=== PATIENT | male | born 1985 | race Caucasian/White ===

== ENCOUNTER 2019-12-22 16:43 | Emergency (ER) | payer BC, SELFPAY ==
[2019-12-22 16:46] VITALS: BP 155/100; PULSE 124; RESP 22; TEMP 37.3; O2SAT 96
--- NOTE | 2019-12-22 17:05 | ED.ALLEREA ---
HPI - Allergic Reaction General Chief complaint: Allergic Reaction Stated complaint: allergic reaction Time Seen by Provider: 12/22/19 16:53 Source: patient Mode of arrival: ambulatory Limitations: no limitations History of Present Illness HPI narrative: This is a 34 year old male that presents to the ER for allergic reaction x 2 days. Reports he recently finished an antibiotic for a sinus infection 2 days ago. Reports he then started to have an itchy rash that spread from his hands to his arms then his face and neck. Reports he has been taking Benadryl with little relief. Denies shortness of breath, or difficulty swallowing. Related Data Allergies Allergy/AdvReac Type Severity Reaction Status Date / Time aspirin Allergy Unknown Itching Verified 12/22/19 17:33 amoxicillin Allergy Hives Verified 12/22/19 17:33 Review of Systems Review of Systems: Narrative: CONSTITUTIONAL: Denies fever RESPIRATORY: Denies dyspnea. GASTROINTESTINAL: Denies diarrhea. SKIN: Reports rash and itching. All systems reviewed & are unremarkable except as noted in HPI and below PMFSH Past Medical History Medical History (Updated 12/22/19 @ 18:57 by Chiquis Saldana PA-C) History of diabetes mellitus History of hyperlipidemia History of hypertension Family History Family History (Updated 11/12/17 @ 09:06 by DOCTOR UNKNOWN) Other Family history of arthritis Hypertension Social History Social History Smoking status: Never smoker Alcohol intake: current Gender identity (if verbalized by the patient): Male Exam Narrative: Exam Narrative: GENERAL: Well-appearing, well-nourished, and in no acute distress. HEAD: Normocephalic, atraumatic. EYES: EOMI. ENT: Nares clear, no rhinorrhea or epistaxis. Mucous membranes moist. Oropharynx without tonsillar hypertrophy exudate or other lesions. Bilateral TMs pearly benites non-bulging NECK: Supple. No adenopathy or masses. CHEST: Clear to auscultation. No respiratory distress. No wheezes rales or rhonchi HEART: Regular rate and rhythm. No murmur heard. Normal peripheral pulses. EXTREMITIES: Normal range of motion. No edema. SKIN: Warm, dry. Red, papular rash present on the arms, neck, face, chest and back NEURO: No focal deficits. Alert and oriented x3. PSYCH: Normal mood and affect Course Vital Signs Vital signs: Vital Signs Temperature 99.2 F 12/22/19 16:46 Pulse Rate 124 H 12/22/19 16:46 Respiratory Rate 22 H 12/22/19 16:46 Blood Pressure 155/100 H 12/22/19 16:46 Pulse Oximetry 96 12/22/19 16:46 Temperature 99.2 F 12/22/19 16:46 Pulse Rate 115 H 12/22/19 18:39 Respiratory Rate 16 12/22/19 18:39 Blood Pressure 142/90 H 12/22/19 18:39 Pulse Oximetry 98 12/22/19 18:39 MDM - Allergic Reaction MDM Narrative Medical decision making narrative: Patient presents the emergency department for diffuse, itchy rash x2 days. He is afebrile and nontoxic-appearing. Lungs are clear on exam. No facial or mouth swelling. Patient tachycardic upon arrival and also hypertensive. This improved after steroid and antihistamines. Patient reports improvement after medications. He will be started on a steroid taper and was instructed on antihistamines. He is to follow-up with his primary care doctor. He was given warnings to return to the ER Critical Care Time Critical Care Time Critical Care Time: No Discharge Plan Discharge Clinical Impression: Allergic reaction Qualifiers: Encounter type: initial encounter Qualified Code(s): T78.40XA - Allergy, unspecified, initial encounter Patient Disposition: Home, Self-Care Condition: Stable Instructions: Antibiotic Medication Allergy (ED) Additional Instructions: Return to the emergency department if you experience fever, difficulty breathing, trouble swallowing, or any other symptoms that are concerning to you Take a Pepcid and Claritin daily. Take steroid taper as prescribed. Atarax as needed for severe i
[2019-12-22] MEDS: LORATADINE 10 MG TABLET PO (17:35)
[2019-12-22] MEDS: methylPREDNISolone SOD SUCC 125 MG VIAL IV PUSH (17:35)
[2019-12-22] MEDS: FAMOTIDINE 20 MG/2 ML VIAL IV PUSH (17:35)
[2019-12-22 18:39] VITALS: BP 142/90; PULSE 115; RESP 16; O2SAT 98
[2019-12-22 19:09] VITALS: BP 147/99; PULSE 89; RESP 17; O2SAT 98
== END 2019-12-22 19:08 | disposition home or self-care (01) ==
PROVIDERS: Emergency Provider Emergency Medicine; PCP Nurse Practitioner Adult Health
DX: T78.40XA Allergy, unspecified, initial encounter (principal); E11.9 Type 2 diabetes mellitus without complications; E78.5 Hyperlipidemia, unspecified; I10 Essential (primary) hypertension
CPT/HCPCS: 96374; 96375; 99284; A9270; J2930

== ENCOUNTER 2019-12-31 03:54 | Emergency (ER) | payer BC, SELFPAY ==
[2019-12-31 03:58] VITALS: BP 142/111; PULSE 114; RESP 18; TEMP 36.4; O2SAT 97
[2019-12-31 04:31] VITALS: BP 128/98; PULSE 102; RESP 18; O2SAT 97
[2019-12-31] MEDS: FAMOTIDINE 20 MG/2 ML VIAL IV PUSH (04:33)
[2019-12-31] MEDS: methylPREDNISolone SOD SUCC 125 MG VIAL IV PUSH (04:36)
[2019-12-31] MEDS: EPINEPHrine HCL INJ 1 MG/ML AMPUL 0.3 MG IM (04:37)
--- NOTE | 2019-12-31 04:46 | ED.ALLEREA ---
HPI - Allergic Reaction General Chief complaint: Allergic Reaction Stated complaint: itching Time Seen by Provider: 12/31/19 04:10 Source: patient Mode of arrival: ambulatory Limitations: no limitations History of Present Illness HPI narrative: 34 yo male who presents for evaluation of an itchy rash. Patient states he first developed rash 12/22/19 after starting amoxicilling for a sinus infection. Patient developed a red rash and he was started on steroids. He reports he has also been evaluated by his PCP who prescribed steroid taper and hydroxyzine. He has also been taking pepcid, benadryl and claritin. He reports his rash will disappear and then return. He states just prior a couple hours ago he develop rash and pain ful swallowing with trouble breathing. He denies fever or chills. MD complaint: allergic reaction Onset (ago): day(s) Exposure: medication Symptoms: rash, itching and difficulty swallowing Previous Allergic Reaction History: prior ED visit(s) Related Data Allergies Allergy/AdvReac Type Severity Reaction Status Date / Time aspirin Allergy Unknown Itching Verified 12/22/19 17:33 amoxicillin Allergy Hives Verified 12/22/19 17:33 Review of Systems Review of Systems: All systems reviewed & are unremarkable except as noted in HPI and below Constitutional: Constitutional: Denies chills and Denies fever(s) Eyes: Eyes: Denies change in vision ENT: Reports dysphagia and Reports sore throat Cardiovascular: Cardiovascular: Denies chest pain and Denies slow heart rate Respiratory: Respiratory: Denies cough and Denies dyspnea Gastrointestinal: Gastrointestinal: Denies abdominal pain and Denies nausea Musculoskeletal: Musculoskeletal: Denies myalgias Integumentary/Breasts: Skin/Breast: Reports pruritus and Reports rash PMFSH Past Medical History Medical History History of diabetes mellitus History of hyperlipidemia History of hypertension Family History Family History Other Family history of arthritis Hypertension Social History Social History Smoking status: Never smoker Alcohol intake: current Gender identity (if verbalized by the patient): Male Exam Narrative: Exam Narrative: GENERAL: Well-appearing, well-nourished, and in no acute distress. HEAD: Normocephalic, atraumatic EYES: PERRLA and EOMI, conjunctiva clear without discharge EARS: TM's clear bilaterally without erythema or dullness NOSE: Nares clear, no rhinorrhea or epistaxis THROAT:Mucous membranes moist, Oropharynx normal without erythema, exudate, peritonsillar swelling or fluctuance NECK: Supple, without lymphadenopathy or mass RESPIRATORY: No respiratory distress, Airway patent, Respirations non-labored, Clear to auscultation without rales, rhonchi or wheeze HEART: Regular rate and rhythm. No murmur heard. Normal peripheral pulses. ABDOMEN: Soft, nontender, nondistended, normal active bowel sounds. No masses. No rebound or guarding, No organomegaly. EXTREMITIES: No edema, normal strength with full range of motion. NEURO: Alert and oriented x3. CN 2-12 grossly intact. No focal deficits. PSYCH: Normal mood and affect. Skin: Other: erythematous papular blanching rash to face, arms and torso Course Reevaluation(s) Reevaluation #1: PAtient has improvement in symptoms. He has no airway involvement. Date: 12/31/19 Time: 07:15 Vital Signs Vital signs: Vital Signs Temperature 97.5 F L 12/31/19 03:58 Pulse Rate 114 H 12/31/19 03:58 Respiratory Rate 18 12/31/19 03:58 Blood Pressure 142/111 H 12/31/19 03:58 Pulse Oximetry 97 12/31/19 03:58 Temperature 97.5 F L 12/31/19 03:58 Pulse Rate 102 H 12/31/19 07:26 Respiratory Rate 18 12/31/19 07:26 Blood Pressure 165/100 H 12/31/19 07:26 Pulse Oximetry 98 12/31/19 07:26 MDM - Allergic Reaction Lab Data Labs: Lab R
[2019-12-31 06:16] VITALS: BP 156/102; PULSE 108; RESP 18; O2SAT 96
[2019-12-31 06:58] LABS: Monoscreen Negative (Negative); Negative Monotest Control Negative (Negative); Positive Monotest Control Positive (Positive)
[2019-12-31 07:26] VITALS: BP 165/100; PULSE 102; RESP 18; O2SAT 98
== END 2019-12-31 07:50 | disposition home or self-care (01) ==
PROVIDERS: Emergency Provider General Practice; PCP Nurse Practitioner Adult Health
DX: L50.0 Allergic urticaria (principal); E11.9 Type 2 diabetes mellitus without complications; I10 Essential (primary) hypertension; E78.5 Hyperlipidemia, unspecified
CPT/HCPCS: 36415; 86308; 87081; 87880; 96372; 96374; 96375; 96376; 99284; J0171; J1200; J2930

== ENCOUNTER 2020-08-06 11:50 | Outpatient (NON) | payer BC, SELFPAY ==
[2020-08-06 23:36] LABS: SARS-CoV-2 RNA PCR Negative
== END 2020-08-06 11:51 ==
PROVIDERS: PCP Nurse Practitioner Adult Health; Visit Provider Family Medicine
DX: Z20.828 Contact with and (suspected) exposure to other viral communicable diseases (principal); R51.9 Headache, unspecified
CPT/HCPCS: 87635; C9803; U0003

== ENCOUNTER 2021-01-05 13:00 | Emergency (ER) | payer BC, SELFPAY ==
--- NOTE | ~2021-01-05 | XR_ITS ---
EXAMINATION: XR toe 1st RT min 2V INDICATION: Right first toe pain TECHNIQUE: Four views of the right first toe are obtained. COMPARISON: 10/01/2015 FINDINGS: Subtle oblique lucency is seen in the medial base of the first proximal phalanx. There is s oft tissue swelling of the first toe. Chronic deformity of the foot is consistent with history of clu bfoot. IMPRESSION: 1. Subtle lucency in the medial base of the first proximal phalanx which could reflect nondisplaced f racture. Reviewed, dictated and finalized at location A. IMPRESSION: 1. Subtle lucency in the medial base of the first proximal phalanx which could reflect nondisplaced fracture.
[2021-01-05 13:01] VITALS: BP 150/101; PULSE 100; RESP 18; TEMP 36.3; O2SAT 100
--- NOTE | 2021-01-05 13:29 | ED.LOWEXIN ---
HPI - Extremity Injury (Lower) General Chief Complaint: Extremity Injury, Lower Stated Complaint: broken toe Time Seen by Provider: 01/05/21 13:10 Source: patient Mode of arrival: ambulatory Limitations: no limitations History of Present Illness HPI Narrative: This is a 35 year old male that presents to the ER for right great toe injury sustained yesterday. Reports he was trying to kick a soccer ball and noted pain after this. Reports swelling and bruising to the area. Denies decreased range of motion or numbness. Related Data Allergies Allergy/AdvReac Type Severity Reaction Status Date / Time aspirin Allergy Unknown Itching Verified 01/05/21 13:11 amoxicillin Allergy Hives Verified 01/05/21 13:03 Review of Systems Review of Systems: Narrative: CONSTITUTIONAL: Denies fever MUSCULOSKELETAL: Reports joint pain, and myalgia. NEUROLOGIC: Denies numbness, or weakness. All systems reviewed & are unremarkable except as noted in HPI and below PMFSH Past Medical History Medical History (Updated 01/05/21 @ 13:42 by Chiquis Saldana PA-C) History of diabetes mellitus History of hyperlipidemia History of hypertension Family History Family History Other Family history of arthritis Hypertension Social History Social History Smoking status: Never smoker Alcohol intake: current Gender identity (if verbalized by the patient): Male Exam Narrative: Exam Narrative: GENERAL: Well-appearing, well-nourished, and in no acute distress. HEAD: Normocephalic, atraumatic. EYES: EOMI. EXTREMITIES: Normal range of motion, no obvious deformity. Mild edema and bruising to the right great toe. Normal sensation. Normal peripheral pulses SKIN: Warm, dry, no rash. NEURO: No focal deficits. Alert and oriented x3. PSYCH: Normal mood and affect Course Vital Signs Vital signs: Vital Signs Temperature 97.3 F L 01/05/21 13:01 Pulse Rate 100 01/05/21 13:01 Respiratory Rate 18 01/05/21 13:01 Blood Pressure 150/101 H 01/05/21 13:01 Pulse Oximetry 100 01/05/21 13:01 Temperature 97.3 F L 01/05/21 13:01 Pulse Rate 100 01/05/21 13:01 Respiratory Rate 18 01/05/21 13:01 Blood Pressure 150/101 H 01/05/21 13:01 Pulse Oximetry 100 01/05/21 13:01 MDM - Extremity Injury (Lower) Imaging Data Radiologist's impression: ITS Impressions Toe X-Ray 01/05/21 13:23 IMPRESSION: 1. Subtle lucency in the medial base of the first proximal phalanx which could reflect nondisplaced fracture. Critical Care Time Critical Care Time Critical Care Time: No Discharge Plan Discharge Clinical Impression: Closed nondisplaced fracture of right great toe Qualifiers: Encounter type: initial encounter Phalanx: proximal Qualified Code(s): S92.414A - Nondisplaced fracture of proximal phalanx of right great toe, initial encounter for closed fracture Patient Disposition: Home, Self-Care Condition: Stable Instructions: Toe Fracture (ED) Additional Instructions: Return to the emergency department if you experience fever, redness and swelling, numbness, or any other symptoms that are concerning to you Blade tape the toe and wear postop shoe. Ice and elevate extremity. Pain medication as needed and directed. Follow up with your doctor for further care. Prescriptions: New hydrocodone-acetaminophen 5-325 mg tablet 1 tablet PO Q8H PRN (Reason: pain) Qty: 14 RF: 0 Follow-up/Referrals: Owen,JOSEPH Koenig [Primary Care Provider] - 3 Days Stand Alone Forms: Work/School Release IP
[2021-01-05] MEDS: HYDROcodone/acetaminophen (*CRX) 5-325 MG TABLET 1 TAB PO (13:42)
== END 2021-01-05 13:53 | disposition home or self-care (01) ==
PROVIDERS: Emergency Provider Emergency Medicine; PCP Nurse Practitioner Adult Health
DX: S92.414A Nondisplaced fracture of proximal phalanx of right great toe, initial encounter for closed fracture (principal); E11.9 Type 2 diabetes mellitus without complications; E78.5 Hyperlipidemia, unspecified; I10 Essential (primary) hypertension; W21.02XA Struck by soccer ball, initial encounter; Y93.66 Activity, soccer
CPT/HCPCS: 73660; 99284; A9270

== ENCOUNTER 2021-02-13 03:47 | Emergency (ER) | payer BC, SELFPAY ==
--- NOTE | ~2021-02-13 | CT_ITS ---
EXAMINATION: CT abdomen pelvis wo con EXAM DATE: 02/13/2021 04:19 INDICATION: Left flank pain. TECHNIQUE: Spiral CT of the abdomen and pelvis was performed without contrast. Axial, coronal and sag ittal images were reviewed. The dose-length product (DLP) for this examination was 1532.89 mGy-cm. The exposure was tailored according to patient size (auto mA exposure control), and iterative reconst ruction (ASIR) was used as additional dose reduction technique. Comparison is made to prior examinati on from 12/07/2012. FINDINGS: There is a 4 mm stone at the left ureteropelvic junction, mild hydronephrosis. There are at least 7 nonobstructing left renal calyceal stones measuring up to 5 mm and at least 9 on the right m easuring up to 6 mm. No right-sided hydronephrosis. The prostate is unremarkable. The bladder is un remarkable. Mild hepatic steatosis. Spleen, pancreas, adrenal glands are unremarkable. Gallbladder is unremarkable. No biliary obstruction. There is no retroperitoneal or pelvic lymphadenopathy. The appendix is normal. There is mild scattered colonic diverticulosis. There is no adjacent inflamm atory change to suggest diverticulitis. The stomach and small bowel are unremarkable. There is expec chacha amount of colonic stool. No free intraperitoneal gas. The heart is normal in size. There are no pericardial or pleural effusions. Couple of calcified granulomas along the right minor fissure. There is 6 mm sclerotic focus right pubis symphysis probably bone island. Lowest lumbar segment is t ransitional, could be considered L6 with rudimentary disc below. IMPRESSION: 1. Left UPJ 4 mm stone, mild hydronephrosis. 2. Bilateral nephrolithiasis. 3. Hepatic steatosis. 4. Mild colonic diverticulosis. Reviewed, dictated and finalized at location B.
[2021-02-13 04:02] VITALS: BP 213/123; PULSE 83; RESP 14; TEMP 36.6; O2SAT 99
[2021-02-13] MEDS: MORPHINE SULFATE (*CRX) 4 MG/ML INJ IV PUSH (04:13)
[2021-02-13] MEDS: ONDANSETRON INJ 4 MG/2 ML VIAL IV PUSH (04:13)
[2021-02-13] MEDS: KETOROLAC 30 MG/ML VIAL (*BKC) IV PUSH (04:13)
[2021-02-13] MEDS: SODIUM CHLORIDE 0.9% IV 1,000 ML 999 ML IV CONT (04:13)
[2021-02-13 04:15] LABS: Basophils Absolute Auto 0.1 K/mm3 (0.0-0.1); Basophils Percent Auto 0.6 % (0.2-1.2); Eosinophils Absolute Auto 0.2 K/mm3 (0-0.3); Eosinophils Percent Auto 2.4 % (0-4.4); Hematocrit 43.9 % (42.0-52.0); Hemoglobin 14.6 g/dL (14.0-18.0); Immature Granulocyte Absolute 0.04 K/mm3 (0.00-0.031); Immature Granulocyte Percent A 0.4 % (0-0.5); Lymphocytes Percent Auto 29.6 % (18.3-44.2); Mean Corpuscular HGB Conc 33.3 g/dl (32-36); Mean Corpuscular Hemoglobin 30.2 pg (26-34); Mean Corpuscular Volume 90.7 fl (80-100); Mean Platelet Volume 10.6 fl (7.4-10.4); Monocytes Percent Auto 10.1 % (2.6-8.5); Neutrophils Absolute Auto 5.8 K/mm3 (1.3-6.7); Neutrophils Percent Auto 56.9 % (45.5-73.1); Platelet Count Result 289 k/mm3 (150-375); Red Blood Count 4.84 M/mm3 (4.6-6.20); Red Cell Distribution Width 12.4 % (11.5-14.5); White Blood Count 10.1 K/mm3 (4.5-10.0)
[2021-02-13 04:37] LABS: Alanine Aminotransferase 31 U/L (4-50); Albumin Level 4.3 g/dL (3.5-5.1); Alkaline Phosphatase 86 U/L (38-126); Anion Gap 8 mmol/L (8-16); Aspartate Amino Transferase 33 U/L (17-59); Bilirubin,Total 0.2 mg/dL (0.2-1.3); Blood Urea Nitrogen 15 mg/dL (9-20); Calcium 9.2 mg/dL (8.4-10.2); Carbon Dioxide 30 mmol/L (22-30); Chloride 102 mmol/L (98-107); Estimated CRCL calculation 106 ml/min; Estimated Glomerular Filt Rate > 60; Glucose 150 mg/dL (75-110); Lipase 80 U/L (23-300); Potassium 3.9 mmol/L (3.4-5.0); Sodium 140 mmol/L (137-145)
[2021-02-13] MEDS: HYDROmorphone HCL INJ (*CRX) 1 MG/ML SYR IV PUSH (05:43)
--- NOTE | 2021-02-13 06:00 | ED.GENADULT ---
HPI - General Adult General Chief complaint: Abdominal Pain Stated complaint: Kidney Stone Time Seen by Provider: 02/13/21 03:54 History of Present Illness HPI narrative: Patient is a 35-year-old gentleman who presents the emergency department chief complaint of left flank pain patient reports he has a prior history of kidney stones reports that tonight he had sudden onset of sharp pain in the left flank and left lower quadrant the patient reports the pain is not improved by anything reports he had some nausea and vomiting. The patient reports this feels similar to when he had kidney stones before in the past. Patient reports he seen a urologist but reports that he is not required stenting or lithotripsy. Related Data Allergies Allergy/AdvReac Type Severity Reaction Status Date / Time aspirin Allergy Unknown Itching Verified 01/05/21 13:11 amoxicillin Allergy Hives Verified 01/05/21 13:03 Review of Systems Review of Systems: Narrative: A 10 system review of systems was completed on the patient and is negative except for what is stated in the HPI. Nursing and ancillary documentation was reviewed. [facility] Past Medical History Medical History (Updated 02/13/21 @ 06:06 by Juan Luis Raymundo MD) History of diabetes mellitus History of hyperlipidemia History of hypertension Family History Family History Other Family history of arthritis Hypertension Social History Social History Smoking status: Never smoker Alcohol intake: current Gender identity (if verbalized by the patient): Male Exam Narrative: Exam Narrative: GENERAL: Well-appearing, well-nourished, and in no acute distress. HEAD: Normocephalic, atraumatic. EYES: PERRLA and EOMI. ENT: Nares clear, no rhinorrhea or epistaxis. Mucous membranes moist. NECK: Supple. CHEST: Clear to auscultation. No respiratory distress. HEART: Regular rate and rhythm. No murmur heard. Normal peripheral pulses. ABDOMEN: Soft, nontender, nondistended, normal active bowel sounds. EXTREMITIES: Normal range of motion. No edema. SKIN: Warm, dry, no rash. NEURO: No focal deficits. Alert and oriented x3. PSYCH: Normal mood and affect. Course Course Emergency Course: CT scan shows evidence of 4 mm stone at the UPJ Vital Signs Vital signs: Vital Signs Temperature 36.6 C 02/13/21 04:02 Pulse Rate 83 02/13/21 04:02 Respiratory Rate 14 02/13/21 04:02 Blood Pressure 213/123 H 02/13/21 04:02 Pulse Oximetry 99 02/13/21 04:02 Temperature 36.6 C 02/13/21 04:02 Pulse Rate 83 02/13/21 04:02 Respiratory Rate 14 02/13/21 04:02 Blood Pressure 213/123 H 02/13/21 04:02 Pulse Oximetry 99 02/13/21 04:02 Medical Decision Making Vital Signs Vital Signs: Vital Signs Temperature 36.6 C 02/13/21 04:02 Pulse Rate 83 02/13/21 04:02 Respiratory Rate 14 02/13/21 04:02 Blood Pressure 213/123 H 02/13/21 04:02 Pulse Oximetry 99 02/13/21 04:02 Temperature 36.6 C 02/13/21 04:02 Pulse Rate 83 02/13/21 04:02 Respiratory Rate 14 02/13/21 04:02 Blood Pressure 213/123 H 02/13/21 04:02 Pulse Oximetry 99 02/13/21 04:02 Lab Data Result diagrams: 02/13/21 04:08 02/13/21 04:08 Labs: Lab Results 02/13/21 02/13/21 02/13/21 Range/Units 04:08 04:08 06:27 WBC 10.1 H (4.5-10.0) K/mm3 RBC 4.84 (4.6-6.20) M/mm3 Hgb 14.6 (14.0-18.0) g/dL Hct 43.9 (42.0-52.0) % MCV 90.7 (80-100) fl MCH 30.2 (26-34) pg MCHC 33.3 (32-36) g/dl RDW 12.4 (11.5-14.5) % Plt Count 289 (150-375) k/mm3 MPV 10.6 H (7.4-10.4) fl Immature Gran % (Auto) 0.4 (0-0.5) % Neut % (Auto) 56.9 (45.5-73.1) % Lymph % (Auto) 29.6 (18.3-44.2) % [place] % (Auto) 10.1 H (2.6-8.5) % Eos % (Auto) 2.4 (0-4.4) % Baso % (Auto) 0.6 (0.2-1.2) %
[2021-02-13 06:42] LABS: Add Urine Microscopic? YES; Appearance Urine Cloudy (Clear); Bilirubin Urine Negative (Negative); Blood Urine 3+ (Negative); Color Urine Yellow (Yellow); Glucose Urine UA Negative (Negative); Ketones Urine Negative (Negative); Leukocyte Esterase Ur Negative LEU/UL (Negative); Mucus Urine Few /lpf; Nitrate Urine Negative (Negative); Protein Urine 2+ mg/dL (Negative); RBC Urine >75 /hpf (0-2); Specific Grav Ur 1.026 (1.001-1.035); Squamous Epithelial Cell Urine Rare /hpf (Few); Urobilinogen Urine Negative mg/dL (<2.0)
[2021-02-13 07:11] VITALS: BP 122/86; PULSE 88; RESP 16; TEMP 36.8; O2SAT 98
== END 2021-02-13 07:14 | disposition home or self-care (01) ==
PROVIDERS: Emergency Provider Emergency Medicine; PCP Nurse Practitioner Adult Health
DX: N13.2 Hydronephrosis with renal and ureteral calculous obstruction (principal); E11.9 Type 2 diabetes mellitus without complications; E78.5 Hyperlipidemia, unspecified; I10 Essential (primary) hypertension; K76.0 Fatty (change of) liver, not elsewhere classified; K57.90 Diverticulosis of intestine, part unspecified, without perforation or abscess without bleeding
CPT/HCPCS: 36415; 74176; 80053; 81001; 83690; 85025; 96361; 96374; 96375; 99284; J1170; J1885; J2270; J2405; J7030

== ENCOUNTER 2021-02-25 11:18 | Outpatient (CLI) | payer BC, SELFPAY ==
--- NOTE | ~2021-02-25 | XR_ITS ---
EXAMINATION: XR abdomen/kub 1V EXAM DATE: 02/25/2021 11:35 INDICATION: Kidney stone, left side flank pain. TECHNIQUE: Frontal projection of the upper abdomen, frontal projection lower abdomen/pelvis for inter pretation. Correlation is made to CT abdomen pelvis 02/13/2021. FINDINGS: There is approximately 4 mm calcification projecting between the L3 and L4 left transverse processes, likely the proximal ureteral stone seen on CT scan. Probably identification of several sim ilar sized kidney stones bilaterally. Mild bilateral hip primary osteoarthritis. Nonobstructive bowel gas pattern. IMPRESSION: 1. Probable identification left proximal ureteral stone. 2. Bilateral nephrolithiasis. Reviewed, dictated and finalized at location A.
== END 2021-02-25 11:19 | disposition home or self-care (01) ==
LOC: ANHIMG 11:24
PROVIDERS: PCP Nurse Practitioner Adult Health; Visit Provider Urology
DX: N20.0 Calculus of kidney (principal)
CPT/HCPCS: 74018

== ENCOUNTER 2021-03-28 13:25 | Outpatient (CLI) | payer BC, SELFPAY ==
--- NOTE | ~2021-03-28 | XR_ITS ---
XR abdomen/kub 1V DATE: 03/28/2021 13:38 INDICATION: Left kidney stone TECHNIQUE: AP projection, 2 views COMPARISON: 02/25/2021 KUB FINDINGS: Scattered bilateral renal calcifications. No ureteral calcified calculus is identified on the current examination. Noncontrast CT abdomen pelvis examination would be more sensitive and accurate for detection of urina ry tract calculi. 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 There is a prominent of fecal material in the ascending and transverse colon. No bowel obstruction. IMPRESSION: Bilateral nephrolithiasis Reviewed, dictated and finalized at [facility]. Reviewed, dictated and finalized at [facility]. IMPRESSION: Bilateral nephrolithiasis
== END 2021-03-28 13:26 | disposition home or self-care (01) ==
LOC: ANHIMG 13:28
PROVIDERS: PCP Nurse Practitioner Adult Health; Visit Provider Urology
DX: N20.0 Calculus of kidney (principal)
CPT/HCPCS: 74018

== ENCOUNTER 2021-04-24 07:06 | Outpatient (CLI) | payer BC, SELFPAY ==
[2021-04-24 07:43] LABS: Anion Gap 10 mmol/L (8-16); Blood Urea Nitrogen 15 mg/dL (9-20); Calcium 9.3 mg/dL (8.4-10.2); Carbon Dioxide 29 mmol/L (22-30); Chloride 101 mmol/L (98-107); Estimated Glomerular Filt Rate > 60; Glucose 211 mg/dL (75-110); Potassium 3.6 mmol/L (3.4-5.0); Sodium 140 mmol/L (137-145)
[2021-04-24 08:49] LABS: INR 0.9; Prothrombin Time 12.2 Seconds (11.1-14.7)
[2021-04-24 08:52] LABS: Partial Thromboplastin Time 23.8 SECONDS (22.3-36.8)
[2021-04-27 00:31] LABS: Carbamazepine Tegretol 5.1 mcg/mL (4.0-12.0)
== END 2021-04-24 07:07 | disposition home or self-care (01) ==
LOC: ANHLAB 07:06
PROVIDERS: PCP Nurse Practitioner Adult Health; Referring Provider Anesthesiology; Visit Provider Urology
DX: N20.0 Calculus of kidney (principal); Z86.39 Personal history of other endocrine, nutritional and metabolic disease; F31.9 Bipolar disorder, unspecified
CPT/HCPCS: 36415; 80048; 80156; 85610; 85730; 87086

== ENCOUNTER 2021-04-25 01:19 | Day surgery (SDC) | payer BC, SELFPAY ==
[2021-04-23 16:30] VITALS: BMI 37.6
--- NOTE | ~2021-04-25 | XR_ITS ---
EXAMINATION: XR abdomen/kub 1V DATE: 04/25/2021 06:38 INDICATION: Kidney stone. TECHNIQUE: A supine view of the abdomen on 2 radiographs was obtained. COMPARISON: Abdomen radiograph 03/28/2021, CT abdomen and pelvis 02/13/2021 FINDINGS: There are no dilated loops of bowel. There are phleboliths in right pelvis. There are least 8 stones in right kidney measuring up to 4 mm. There are at least 4 stones in left kidney measuring up to 3 mm. IMPRESSION: 1. Bilateral kidney stones. Reviewed, dictated and finalized at location [facility]. IMPRESSION: 1. Bilateral kidney stones.
--- NOTE | 2021-04-25 06:58 | ECG_ITS ---
Measurements Intervals [place] Rate: 81 P: 42 KS: 166 QRS: 37 QRSD: 107 T: -6 QT: 376 QTc: 437 Interpretive Statements SINUS RHYTHM BASELINE WANDER- II, III, V3, V6 NORMAL ECG Electronically Signed On 04-25-2021 7:54:15 CDT by Kaveh Lorenzana D.O.
[2021-04-25 07:08] VITALS: BP 147/94; PULSE 84; RESP 18; TEMP 36.4; O2SAT 97; BMI 38.1
[2021-04-25] MEDS: LACTATED RINGERS 1,000 ML 30 ML IV CONT (07:20)
[2021-04-25 07:32] LABS: Glucose Point of Care 150 mg/dl (65-105)
--- NOTE | 2021-04-25 07:38 | WPDANESEPPF ---
Anes - Initial Pre Proc Eval Procedure: Operation Date: 04/25/21 08:30 Proposed Procedures p Right Renal Extracorporeal Shock Wave Lithotripsy - Oziel Pitts MD Date/Time: 04/25/21 07:38 Surgeon: Oziel Pitts MD Pre Op Diagnosis: right renal stone Patient Data Age: 35 Gender: M Height: 1.7 m Weight: 110.4 kg Last Vital Signs Temp 36.4 C L 04/25/21 07:08 Pulse 84 04/25/21 07:08 Resp 18 04/25/21 07:08 BP 147/94 H 04/25/21 07:08 Pulse Ox 97 04/25/21 07:08 Allergies Allergy/AdvReac Type Severity Reaction Status Date / Time amoxicillin Allergy Severe Hives Verified 04/25/21 06:59 aspirin Allergy Severe Hives Verified 04/25/21 06:59 Home Medications Medication Instructions Recorded Confirmed Type amlodipine 5 mg PO DAILY 04/23/21 04/25/21 History atorvastatin 10 mg PO DAILY 04/23/21 04/23/21 History carbamazepine 200 mg PO DAILY 04/23/21 04/25/21 History epinephrine 0.3 mg SUBCUT PRN PRN 04/23/21 04/23/21 History losartan-hydrochlorothiazide 1 tablet PO DAILY 04/23/21 04/23/21 History metformin 1,000 mg PO BID 04/23/21 04/23/21 History omeprazole 40 mg PO DAILY 04/23/21 04/23/21 History Laboratory Tests 04/25/21 07:29 POC Capillary Glucose 150 mg/dl H mg/dl (65-105) Patient hx anesthesia problems: none Family hx anesthesia problems: none [facility] Past Medical History Medical History (Updated 02/14/21 @ 00:01 by [facility]) History of diabetes mellitus History of hyperlipidemia History of hypertension Surgical History Surgical History (Updated 04/25/21 @ 07:41 by Iglesia Reynolds MD) Status post club foot correction at Family History Family History Other Family history of arthritis Hypertension Social History Social History Smoking status: Never smoker Alcohol intake: current Alcohol use details: 2 DRINKS PER MONTH Living arrangements: with family Gender identity (if verbalized by the patient): Male Spiritual care concerns: No Anes - Eval Final PreProcedure Day of Procedure 04/25/21 07:38 Patient weight: obese Heart: regular rate and rhythm Lungs: clear to auscultation Airway: Mallampati scale class II Neurological: alert and oriented Last oral intake: >/= 8 hours ASA classification: III Emergent: no Anesthetic plan: proceed Anesthesia type and monitoring: general LMA and standard monitoring Informed Consent: The patient's anesthetic plan and its attendant risks and benefits were discussed with the patient/family/POA. Questions were solicited and answers provided to the satisfaction of the patient/family/POA.
--- NOTE | 2021-04-25 08:21 | SUR.PREOP ---
Notified patient there will be a delay for procedure. Patient verbalizes understanding.
--- NOTE | 2021-04-25 09:40 | SUR.PREOP ---
0940- Patient's procedure cancelled due to ESWL machine being broken. Procedure to be performed at outside facility. Patient discharged home at this time.
== END 2021-04-25 09:40 | disposition home or self-care (01) ==
PROVIDERS: PCP Nurse Practitioner Adult Health; Visit Provider Urology
PROC: (CPT 50590; principal; 2021-04-25 08:30)
DX: N20.0 Calculus of kidney (principal); Z53.8 Procedure and treatment not carried out for other reasons; I10 Essential (primary) hypertension; E78.5 Hyperlipidemia, unspecified; E11.9 Type 2 diabetes mellitus without complications; Z79.84 Long term (current) use of oral hypoglycemic drugs
CPT/HCPCS: 74018; 82948; 93005; 99213; G0463; J7120

== ENCOUNTER 2021-05-09 13:54 | Outpatient (CLI) | payer BC, SELFPAY ==
--- NOTE | ~2021-05-09 | XR_ITS ---
EXAMINATION: XR abdomen/kub 1V INDICATION: History of bilateral nephrolithiasis, recent lithotripsy TECHNIQUE: Supine views of the abdomen were obtained on 2 radiographs. COMPARISON: 04/25/2021 FINDINGS: Only a single 3 mm stone remains identifiable in the left kidney. There is a questionable 2 mm stone of the right kidney lower pole. No stones or stone fragments are identified along the expec chacha courses of the ureters or within the bladder. There are phleboliths of the right pelvis. IMPRESSION: 1. Bilateral nephrolithiasis with decrease in number of identifiable left kidney stones, consistent w ith history of interval lithotripsy. Reviewed, dictated and finalized at location [facility]. IMPRESSION: 1. Bilateral nephrolithiasis with decrease in number of identifiable left kidne y stones, consistent with history of interval lithotripsy.
== END 2021-05-09 13:55 | disposition home or self-care (01) ==
LOC: ANHIMG 13:57
PROVIDERS: PCP Nurse Practitioner Adult Health; Visit Provider Urology
DX: N20.0 Calculus of kidney (principal)
CPT/HCPCS: 74018

== ENCOUNTER 2023-11-29 01:01 | Day surgery (SDC) | payer BC, SELFPAY ==
[2023-11-25 10:10] VITALS: BMI 37.5
--- NOTE | 2023-11-26 11:19 | SUR.PREOP ---
Patient called regarding upcoming procedure. Reviewed preop instructions, appointment times, and procedure prep.
--- NOTE | 2023-11-26 13:57 | PM.HPGS ---
History of Present Illness History of Present Illness Consent: Risks, benefits, and alternatives have been discussed and questions answered. Patient agrees to proceed with procedure. Chief complaint: hx of other diseases of the digestive system Narrative: Farhad Anderson is a 38 year old male with chronic acid reflux and history of Possible esophageal ulcer. he has been on omeprazole for over 20 years. Does well for him but occasionally he has breakthrough symptoms will take a 2nd dose. His symptoms when present are heartburn and, more frequently regurgitating particularly at night. This will happen about every couple of months. He denies dysphagia. His appetite is good he has had no weight loss. Review of Systems Review of Systems: All systems reviewed & are unremarkable except as noted in HPI and below PMFSH Past Medical History Medical History Allergies Chronic GERD Diabetes History of diabetes mellitus History of hyperlipidemia History of hypertension HTN (hypertension) Surgical History Surgical History Status post club foot correction at Family History Family History Father Diabetes mellitus Hypertension Depression Heart disease Grandparent Diabetes mellitus Hypertension Heart disease Grandparent Hypertension Heart disease Other Family history of arthritis Social History Social History Smoking status: Never smoker Alcohol intake: current Drinks per week: 1 Substance use: never Substance use type: does not use Lack of Transportation: No Lack of Food: Never True Current Housing: I Have Housing Concerned About Future Housing: No Difficulty Paying Gas/Electric Bills: No Difficulty Paying for Meds: No Currently Unemployed: No Education: Decline to Answer Difficulty w/ Childcare or Family Care: No Living arrangements: with family Occupation/Education: occupation Additional occupation/education comments: [employer] Gender identity (if verbalized by the patient): Male Spiritual care concerns: No Agree to blood products: Yes Meds Home Medications and Allergies Home Medications Medication Instructions Recorded Confirmed Type amlodipine 5 mg tablet 5 mg PO DAILY 04/23/21 11/29/23 History atorvastatin 10 mg tablet 10 mg PO DAILY 04/23/21 11/29/23 History carbamazepine 200 mg tablet 200 mg PO DAILY 04/23/21 11/29/23 History epinephrine 0.3 mg/0.3 mL 0.3 mg subcut PRN PRN HIVES 04/23/21 11/29/23 History injection, auto-injector losartan 100 1 tablet PO DAILY 04/23/21 11/29/23 History mg-hydrochlorothiazide 12.5 mg tablet omeprazole 40 mg capsule,delayed 40 mg PO DAILY 04/23/21 11/29/23 History release tirzepatide 5 mg/0.5 mL 5 mg (0.5 mL) subcut WEEKLY #2 mL 11/02/23 11/29/23 Rx subcutaneous pen injector (Mounjaro) tirzepatide 7.5 mg/0.5 mL 7.5 mg (0.5 mL) subcut WEEKLY #2 mL 11/02/23 11/29/23 Rx subcutaneous pen injector (Mounjaro) metformin 750 mg tablet,extended 750 mg PO HS 11/25/23 11/29/23 History release 24 hr Allergies Allergy/AdvReac Type Severity Reaction Status Date / Time amoxicillin Allergy Severe Hives Verified 11/29/23 11:27 aspirin Allergy Intermediate Hives Verified 11/29/23 11:27 Exam Const: General: alert Nutritional Appearance: obese Orientation/consciousness: patient oriented x3 Resp: Auscultation: clear to auscultation bilaterally Cardio: Rhythm: regular rhythm GI: GI Palp: Yes Soft to palpation and No Tenderness to palpation present (GI) Neuro: General: patient oriented x3 Assessment and Plan Assessment and plan (1) History of esophageal ulcer: Code(s): Z87.19 - Personal history of other diseases of the digestive system Status: A
[2023-11-29 11:37] VITALS: BP 160/109; PULSE 90; RESP 16; TEMP 36.9; O2SAT 97
[2023-11-29] MEDS: LACTATED RINGERS 1,000 ML 150 ML IV CONT (11:48)
--- NOTE | 2023-11-29 11:52 | WPDANESEPPF ---
Anes - Initial Pre Proc Eval Procedure: Operation Date: 11/29/23 12:30 Proposed Procedures p Esophagogastroduodenoscopy - Alin David MD Date/Time: 11/29/23 11:52 Surgeon: Alin David MD Pre Op Diagnosis: hx of other diseases of the digestive system Patient Data Age: 38 Gender: M Height: 1.7 m Weight: 112.7 kg Last Vital Signs Temp 98.4 F 11/29/23 11:37 Pulse 90 11/29/23 11:37 Resp 16 11/29/23 11:37 BP 160/109 H 11/29/23 11:37 Pulse Ox 97 11/29/23 11:37 O2 Del Method Room Air 11/29/23 11:37 Allergies Allergy/AdvReac Type Severity Reaction Status Date / Time amoxicillin Allergy Severe Hives Verified 11/29/23 11:27 aspirin Allergy Intermediate Hives Verified 11/29/23 11:27 Home Medications Medication Instructions Recorded Confirmed Type amlodipine 5 mg tablet 5 mg PO DAILY 04/23/21 11/29/23 History atorvastatin 10 mg tablet 10 mg PO DAILY 04/23/21 11/29/23 History carbamazepine 200 mg tablet 200 mg PO DAILY 04/23/21 11/29/23 History epinephrine 0.3 mg/0.3 mL 0.3 mg subcut PRN PRN HIVES 04/23/21 11/29/23 History injection, auto-injector losartan 100 1 tablet PO DAILY 04/23/21 11/29/23 History mg-hydrochlorothiazide 12.5 mg tablet omeprazole 40 mg capsule,delayed 40 mg PO DAILY 04/23/21 11/29/23 History release tirzepatide 5 mg/0.5 mL 5 mg (0.5 mL) subcut WEEKLY #2 mL 11/02/23 11/29/23 Rx subcutaneous pen injector (Mounjaro) tirzepatide 7.5 mg/0.5 mL 7.5 mg (0.5 mL) subcut WEEKLY #2 mL 11/02/23 11/29/23 Rx subcutaneous pen injector (Mounjaro) metformin 750 mg tablet,extended 750 mg PO HS 11/25/23 11/29/23 History release 24 hr Patient hx anesthesia problems: none Family hx anesthesia problems: none Results Review: All pre-operative results and documents have been reviewed as part of the pre-operative evaluation. [facility] Past Medical History Medical History Allergies Chronic GERD Diabetes History of diabetes mellitus History of hyperlipidemia History of hypertension HTN (hypertension) Surgical History Surgical History Status post club foot correction at Family History Family History Father Diabetes mellitus Hypertension Depression Heart disease Grandparent Diabetes mellitus Hypertension Heart disease Grandparent Hypertension Heart disease Other Family history of arthritis Social History Social History Smoking status: Never smoker Alcohol intake: current Drinks per week: 1 Substance use: never Substance use type: does not use Lack of Transportation: No Lack of Food: Never True Current Housing: I Have Housing Concerned About Future Housing: No Difficulty Paying Gas/Electric Bills: No Difficulty Paying for Meds: No Currently Unemployed: No Education: Decline to Answer Difficulty w/ Childcare or Family Care: No Living arrangements: with family Occupation/Education: occupation Additional occupation/education comments: [employer] Gender identity (if verbalized by the patient): Male Spiritual care concerns: No Agree to blood products: Yes Anes - Eval Final PreProcedure Day of Procedure 11/29/23 11:52 Patient weight: obese Heart: regular rate and rhythm Lungs: clear to auscultation Airway: Mallampati scale class II Neurological: alert and oriented Last oral intake: >/= 8 hours ASA classification: III Emergent: no Anesthetic plan: proceed Anesthesia type and monitoring: general GIVS and standard monitoring Results Review: All pre-operative results and documents have been reviewed as part of the pre-operative evaluation. Informed Consent: The patient's anesthetic plan and its attendant risks and benefits were discussed with the patient
[2023-11-29 12:29] VITALS: BP 130/87; PULSE 89; RESP 15; O2SAT 94
[2023-11-29 12:39] VITALS: BP 127/87; PULSE 91; RESP 17; O2SAT 94
[2023-11-29 12:49] VITALS: BP 140/92; PULSE 84; RESP 17; O2SAT 95
[2023-11-30 06:20] LABS: Glucose Point of Care 113 mg/dl (65-105)
== END 2023-11-29 12:59 | disposition home or self-care (01) ==
PROVIDERS: PCP Nurse Practitioner Adult Health; Visit Provider Internal Medicine Gastroenterology
PROC: 0DJ08ZZ Inspection of Upper Intestinal Tract, Via Natural or Artificial Opening Endoscopic (ICD-10-PCS; CPT 43235; principal; 2023-11-29 12:30)
DX: K21.00 Gastro-esophageal reflux disease with esophagitis, without bleeding (principal); I10 Essential (primary) hypertension; E78.5 Hyperlipidemia, unspecified; E11.9 Type 2 diabetes mellitus without complications; E66.9 Obesity, unspecified; Z68.38 Body mass index [BMI] 38.0-38.9, adult; Z79.85 Long-term (current) use of injectable non-insulin antidiabetic drugs; Z79.84 Long term (current) use of oral hypoglycemic drugs; Z98.890 Other specified postprocedural states; Z87.19 Personal history of other diseases of the digestive system; Z82.49 Family history of ischemic heart disease and other diseases of the circulatory system
CPT/HCPCS: 43239; 82948; 88305; J2704; J7120

== ENCOUNTER 2024-06-09 08:17 | Outpatient (CLI) | payer BC, SELFPAY ==
[2024-06-09 09:14] LABS: Alanine Aminotransferase 24 U/L (6-50); Albumin Level 4.2 g/dL (3.5-5.1); Alkaline Phosphatase 99 U/L (38-126); Anion Gap 9 mmol/L (4-12); Aspartate Amino Transferase 28 U/L (17-59); Bilirubin,Total 0.4 mg/dL (0.2-1.3); Blood Urea Nitrogen 20 mg/dL (9-20); Calcium 8.6 mg/dL (8.4-10.2); Carbon Dioxide 29 mmol/L (22-30); Chloride 101 mmol/L (98-107); Cholesterol 129 mg/dL (0-200); Estimated Glomerular Filt Rate > 60; Glucose 120 mg/dL (65-110); HDL Direct 39 mg/dL; Potassium 3.8 mmol/L (3.4-5.0); Sodium 139 mmol/L (137-145); Triglycerides 118 mg/dL (<150)
[2024-06-09 09:25] LABS: LDL Cholesterol Direct 67 mg/dL
[2024-06-09 10:00] LABS: Microalbumin Urine Random 8.9 mg/L (0-16.7)
[2024-06-09 10:01] LABS: Creatinine Urine 189.8 mg/dL; MALB Creatinine Ratio 4.7 mg/g (0-30)
[2024-06-09 12:09] LABS: Hemoglobin A1C 6.4 % (<5.7)
== END 2024-06-09 08:18 | disposition home or self-care (01) ==
LOC: ANHLAB 08:22
PROVIDERS: PCP Nurse Practitioner Adult Health; Visit Provider Nurse Practitioner Adult Health
DX: E11.9 Type 2 diabetes mellitus without complications (principal); K21.9 Gastro-esophageal reflux disease without esophagitis
CPT/HCPCS: 36415; 80053; 80061; 82043; 82565; 82607; 83036

== ENCOUNTER 2024-07-19 09:30 | Emergency (ER) | payer BC, SELFPAY ==
[2024-07-19 09:33] VITALS: BP 130/79; PULSE 110; RESP 19; TEMP 37; O2SAT 96
[2024-07-19 10:02] LABS: Basophils Absolute Auto 0.1 K/mm3 (0.0-0.1); Basophils Percent Auto 0.4 % (0.2-1.2); Eosinophils Absolute Auto 0.1 K/mm3 (0-0.3); Eosinophils Percent Auto 0.7 % (0-4.4); Hematocrit 40.4 % (42.0-52.0); Hemoglobin 14.1 g/dL (14.0-18.0); Immature Granulocyte Absolute 0.16 K/mm3 (0.00-0.031); Immature Granulocyte Percent A 1.3 % (0-0.5); Lymphocytes Absolute Auto 1.55 K/mm3 (0.9-3.2); Mean Corpuscular HGB Conc 34.9 g/dl (32-36); Mean Corpuscular Hemoglobin 31.3 pg (26-34); Mean Corpuscular Volume 89.8 fl (80-100); Monocytes Percent Auto 8.6 % (2.6-8.5); Neutrophils Absolute Auto 9.1 K/mm3 (1.3-6.7); Platelet Count Result 343 k/mm3 (150-375); Red Cell Distribution Width 11.8 % (11.5-14.5); White Blood Count 11.9 K/mm3 (4.5-10.0)
[2024-07-19 10:12] LABS: Add Urine Microscopic? YES; Appearance Urine Clear (Clear); Bacteria Urine None Seen /hpf; Bilirubin Urine Negative (Negative); Blood Urine 1+ (Negative); Color Urine Yellow (Yellow); Glucose Urine UA Negative (Negative); Ketones Urine 1+ mg/dL (Negative); Leukocyte Esterase Ur Negative LEU/UL (Negative); Nitrate Urine Negative (Negative); Non Pathogenic Casts 0-2; Protein Urine Negative (Negative); Specific Grav Ur 1.017 (1.001-1.035); Squamous Epithelial Cell Urine None Seen /hpf (Few); Urobilinogen Urine 0.2 mg/dL (<2.0); WBC Urine 0-5 /hpf (0-3)
[2024-07-19 10:14] LABS: Alanine Aminotransferase 30 U/L (6-50); Albumin Level 3.9 g/dL (3.5-5.1); Alkaline Phosphatase 90 U/L (38-126); Anion Gap 10 mmol/L (4-12); Aspartate Amino Transferase 27 U/L (17-59); Bilirubin,Total 0.6 mg/dL (0.2-1.3); Blood Urea Nitrogen 11 mg/dL (9-20); Calcium 8.8 mg/dL (8.4-10.2); Carbon Dioxide 29 mmol/L (22-30); Chloride 98 mmol/L (98-107); Estimated CRCL calculation 120 ml/min; Estimated Glomerular Filt Rate > 60; Glucose 209 mg/dL (65-110); Lipase 118 U/L (23-300); Potassium 3.2 mmol/L (3.4-5.0); Sodium 137 mmol/L (137-145)
[2024-07-19] MEDS: SODIUM CHLORIDE 0.9% IV 1,000 ML 999 ML IV CONT (10:16)
[2024-07-19 10:40] LABS: Influenza A QL RT-PCR Negative (Negative); Influenza B QL RT-PCR Negative (Negative); RSV RNA, RT-PCR Negative (Negative); SARS-CoV-2 RNA PCR Negative (Negative)
[2024-07-19 11:24] VITALS: BP 120/80; PULSE 97; RESP 18; TEMP 37.1; O2SAT 96
--- NOTE | 2024-07-19 12:45 | ED.NAVMDI ---
HPI - Nausea/Vomiting/Diarrhea General Chief complaint: Nausea/Vomiting/Diarrhea Stated complaint: diarrhea and a long list of things Time Seen by Provider: 07/19/24 10:02 History of Present Illness HPI Narrative: Patient is a 39-year-old male who presents ER with diarrhea. Ongoing over last 5 days. It has slowed down but he has had persistent weakness and fatigue. No nausea. No fevers or chills no known sick contacts. Reports he did eat some sushi but he is having diarrhea prior to eating the sushi. He does have some mild discomfort around his buttock that began today. Related Data Home Medications Medication Instructions Recorded Confirmed epinephrine 0.3 mg/0.3 mL 0.3 mg subcut PRN PRN HIVES 04/23/21 05/03/24 injection, auto-injector Allergies Allergy/AdvReac Type Severity Reaction Status Date / Time amoxicillin Allergy Severe Hives Verified 07/19/24 09:31 aspirin Allergy Intermediate Hives Verified 07/19/24 09:31 Review of Systems Review of Systems: All systems reviewed & are unremarkable except as noted in HPI and below Constitutional: Constitutional: Denies chills, Reports fatigue and Denies fever(s) ENT: Reports system reviewed and no additional complaints, except as documented Cardiovascular: Cardiovascular: Reports no additional cardiovascular complaints Respiratory: Respiratory: Reports no additional respiratory complaints Gastrointestinal: Gastrointestinal: Denies abdominal pain, Reports diarrhea, Reports nausea and Denies vomiting Musculoskeletal: Musculoskeletal: Reports no additional musculoskeletal complaints [facility] Past Medical History Medical History Allergies Chronic GERD Diabetes History of diabetes mellitus History of hyperlipidemia History of hypertension HTN (hypertension) Surgical History Surgical History Status post club foot correction at Family History Family History Father Diabetes mellitus Hypertension Depression Heart disease Grandparent Diabetes mellitus Hypertension Heart disease Grandparent Hypertension Heart disease Other Family history of arthritis Social History Social History (Updated 02/02/24 @ 15:07 by Maya Wilson CMA) Smoking status: Never smoker Alcohol intake: current Drinks per week: 1 Substance use: never Substance use type: does not use Do You Feel Safe in your Home?: Yes Lack of Transportation: No Lack of Food: Never True Current Housing: I Have Housing Concerned About Future Housing: No Difficulty Paying Gas/Electric Bills: No Difficulty Paying for Meds: No Currently Unemployed: No Education: Decline to Answer Difficulty w/ Childcare or Family Care: No Living arrangements: with family Occupation/Education: occupation Additional occupation/education comments: [employer] Gender identity (if verbalized by the patient): Male Spiritual care concerns: No Agree to blood products: Yes Exam Narrative: GENERAL: Well-appearing, well-nourished, and in no acute distress. HEAD: Normocephalic, atraumatic. ENT: Mucous membranes moist. NECK: Supple. CHEST: Clear to auscultation. No respiratory distress. HEART: Regular rate and rhythm. Normal peripheral pulses. ABDOMEN: Soft, nontender, nondistended. Small nonthrombosed/nonbleeding external hemorrhoid. EXTREMITIES: Normal range of motion. No edema. SKIN: Warm, dry, no rash. NEURO: Alert and oriented x3. PSYCH: Normal mood and affect. Course Course Emergency Course: Resting comfortably, Hydrated. D/c home with supportive care. Vital Signs Vital signs: Vital Signs Temperature 98.6 F 07/19/24 09:33 Pulse Rate 110 H 07/19/24 09:33 Respiratory Rate 19 07/19/24 09:33 Blood Pressure 130/79 07/19/24 09:33 Pulse Oximetry 96 07/19/24
== END 2024-07-19 13:33 | disposition home or self-care (01) ==
PROVIDERS: Emergency Provider Emergency Medicine; PCP Nurse Practitioner Adult Health
DX: K52.9 Noninfective gastroenteritis and colitis, unspecified (principal); K64.4 Residual hemorrhoidal skin tags; Z20.822 Contact with and (suspected) exposure to COVID-19; I10 Essential (primary) hypertension; E11.9 Type 2 diabetes mellitus without complications; E78.5 Hyperlipidemia, unspecified; K21.9 Gastro-esophageal reflux disease without esophagitis; Z79.85 Long-term (current) use of injectable non-insulin antidiabetic drugs; Z79.899 Other long term (current) drug therapy; Z79.84 Long term (current) use of oral hypoglycemic drugs
CPT/HCPCS: 36415; 80053; 81001; 83690; 85025; 87637; 96360; 99283; J7030

== ENCOUNTER 2025-10-04 17:46 | Emergency (ER) | payer BC, SELFPAY ==
--- OUTSIDE RECORDS SUMMARY | 2019-12-27 04:00 | XMS_ITS | Continuity of Care Document ---
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 Manager Name Role Phone Rhett PT, DPT, Drew Unavailable Unavailable Procedures Procedure Date Therapeutic Activities Neuromuscular Re-Ed Therapeutic Exercise Therapeutic Activities Neuromuscular Re-Ed Therapeutic Exercise Progress Note Neuromuscular Re-Ed Therapeutic Activities Therapeutic Exercise Therapeutic Activities Neuromuscular Re-Ed Therapeutic Exercise PT Evaluation Moderate Complexity Therapeutic Exercise Manual Therapy PT RE-EVALUATION THERAPEUTIC EXERCISES NEUROMUSCULAR RE-ED MANUAL THERAPY FUNC ACTIVITY 15 MIN THERAPEUTIC EXERCISES NEUROMUSCULAR RE-ED MANUAL THERAPY FUNC ACTIVITY 15 MIN THERAPEUTIC EXERCISES NEUROMUSCULAR RE-ED MANUAL THERAPY FUNC ACTIVITY 15 MIN THERAPEUTIC EXERCISES NEUROMUSCULAR RE-ED MANUAL THERAPY FUNC ACTIVITY 15 MIN THERAPEUTIC EXERCISES NEUROMUSCULAR RE-ED MANUAL THERAPY FUNC ACTIVITY 15 MIN THERAPEUTIC EXERCISES NEUROMUSCULAR RE-ED MANUAL THERAPY FUNC ACTIVITY 15 MIN HOT/COLD PACK ELECTRIC STIMULATION UNATT THERAPEUTIC EXERCISES NEUROMUSCULAR RE-ED MANUAL THERAPY FUNC ACTIVITY 15 MIN THERAPEUTIC EXERCISES NEUROMUSCULAR RE-ED MANUAL THERAPY FUNC ACTIVITY 15 MIN HOT/COLD PACK ELECTRIC STIMULATION UNATT THERAPEUTIC EXERCISES NEUROMUSCULAR RE-ED MANUAL THERAPY HOT/COLD PACK ELECTRIC STIMULATION UNATT THERAPEUTIC EXERCISES NEUROMUSCULAR RE-ED MANUAL THERAPY PT EVALUATION THERAPEUTIC EXERCISES NEUROMUSCULAR RE-ED Advance Directives Directive Yes / No Effective Date File Name No Information Encounters Encounter Description Practice Location Reason(s) For Visit Diagnoses Date Provider Providers Copied on Encounter [facility] [employer] [address] [place] [address], [id number], tel:[phone] [place] No Information 0 Makler Luke. . [facility] [employer] [address] [place] [address], [id number], tel:[phone] [place] No Information 0 Threlkeld Alondra. . [facility] [employer] [address] [place] [address], [id number], tel:[phone] [place] No Information 0 Threlkeld Alondra. . [facility], [place], [place], [id number], tel:[phone] [place] No Information 0 Threlkeld Alondra. . [facility], [address], [place], [place], [id number], [place] tel:[phone] [place] No Information 2-202 0 Threlkeld Alondra. . [facility], [address], [place], [place], [id number], [place] tel:[phone] [place] No Information 6-201 3 Person Maye. [address] [place] [address], [address], [place], [place], [facility], [place]. tel:[phone] [facility] [address], [place], [place], [id number], [place] tel:[phone] [place] No Information 4-201 3 Person Maye. [address] [place] [address], [address], [place], [place], [facility], . tel:[phone] [facility] [address], [place], [place], [id number], [place] tel:[phone] [place] No Information Mar- 0-201 3 Person Maye. [address] [place] [address], [address], [place], [place], [facility], [place]. tel:[phone] [facility] [address], [place], [place], [id number], [place] tel:[phone] [place] No Information 7-201 3 Person Maye. [address] [place] [address], [address], [place], [place], [facility], [place]. tel:[phone] [facility] [address], [place], [place], [id number], [place] tel:[phone] [place] No Information Mar- 3-201 3 Person Maye. [address] [place] [address], [address], [place], [place], [facility], [place]. tel:[phone] [facility] [address], [place], [place], [id number], [place] tel:[phone] [place] No Information Rush-1 2-201 3 [address] Maye[address] [place] [address], [address], [place], [address], . tel:[phone], [place], [place], [id number], tel:[phone] [place] No Information May-3 0-201 3 [address] Maye[address] [place] [address], [address], [place], [address], [place]. tel:[phone] [address], [place], [place], [id number], tel:[phone] [place] No Information May-2 9-201 3 Person Maye[address] [place] [address], [address], [place], [address], . tel:[phone], [place], [place], [id number], tel:[phone] [place] No Information May-2 3-201 [address] Maye[address] [place] [address], [address], [place], [address], [place]. tel:[phone], [place], [place], [id number], tel:[phone] [place] No Information May-2 2-201 [address] Maye[address] [place] [address], [address], [place], [address], [place]. tel:[phone] [address], [place], [id number], tel:[phone] [place] Lumbago February-1 5-201 3 [address] Maye[address] [place] [address], [address], [place], [address], . tel:[phone] Family History Family Member Type Diagnosis Age At Onset No Information Payers Payer name Insurance type Covered libertarian ID Rufino calzada(s) [facility] [id number] Social History Type Description Quantity Date Captured Comments Sex Male Smoking Status No Information Chief Complaint And Reason For Visit No Information Reason For Referral Reason For Referral No Information History Of Present Illness Encounter Date Complaint History Of Prese nt Illness No Information Functional Status Date Functional Assessmen t No Information Instructions Date Instruction Additional Infor jose manuel Giving encouragement to exercise Related to Overweight Assessments Type Assessment Date No Information Patient Care Teams Name Effective Dates (start - stop) Status Members No Information
--- NOTE | ~2025-10-04 | XR_ITS ---
EXAMINATION: XR foot RT 2V DATE: 10/04/2025 20:18 INDICATION: Reduction of the previously dislocated right second and third proximal interphalangeal joints TECHNIQUE: Dorsoplantar and lateral views of the right foot were obtained. COMPARISON: None. FINDINGS: Decrease in the degree of now minimal residual lateral subluxation at the second and third proximal interphalangeal joints. Stable appearance of old healed realignment osteotomies of the first-fifth metatarsals likely for treatment of reported developmental clubfoot deformity with persistent pes cavus on the lateral projection. No acute fracture. 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 IMPRESSION: 1. Interval decrease in now minimal residual lateral subluxation at the right second and third proximal interphalangeal joints. No fracture. 2. Likely developmental clubfoot deformity with chronic likely realignment osteotomies of the first second fifth metatarsals. Reviewed, dictated and finalized at location A. SERVICES PROFESSIONAL IMPRESSION: 1. Interval decrease in now minimal residual lateral subluxation at the right s econd and third proximal interphalangeal joints. No fracture. 2. Likely developmental clubfoot deformity with chronic likely realignment oste otomies of the first second fifth metatarsals.
--- NOTE | ~2025-10-04 | XR_ITS ---
XR foot RT 2V 10/04/2025 18:14 Indication: Right foot pain after standing injury. Procedure: 2 views right foot Comparison: 01/05/2021 Findings: Chronic developmental deformity of the foot consistent with known clubfoot. There is mild lateral subluxation of the second and third middle phalanges with respect to the proximal phalanx of uncertain age. No significant soft tissue abnormality. No foreign bodies. Impression: 1: Mild lateral subluxation of the second and third middle phalanges at the PIP joints of uncertain age. 2: Chronic developmental deformity of the foot, consistent with known clubfoot. Reviewed, dictated and finalized at location O. OSIVE ORDNANCE TECHNICIAN Impression: 1: Mild lateral subluxation of the second and third middle phalanges at the PIP joints of uncertain age. 2: Chronic developmental deformity of the foot, consistent with known clubfoot.
[2025-10-04 17:48] VITALS: BP 160/100; PULSE 118; RESP 20; TEMP 37.1; O2SAT 96
--- NOTE | 2025-10-04 18:45 | ED_ITS ---
HPI - Extremity Injury (Lower) General Chief Complaint: Extremity Injury, Lower Stated Complaint: R FOOT INJURY Time Seen by Provider: 10/04/25 18:32 Source: patient Mode of arrival: wheelchair Limitations: no limitations History of Present Illness HPI Narrative: This is a 40-year-old male with history of right clubfoot status post many surgeries who presents the ED for right foot injury. Patient states that he tried to stand up today and felt a large pop in his right foot and has not been able walk. He follows with Dr. Dawkins, orthopedic surgery, for his foot care. Denies any other injuries. Denies numbness, tingling. Related Data Home Medications ?Medication ?Instructions ?Recorded ?Confirmed ?Last Taken ?Type epinephrine 0.3 mg/0.3 mL 0.3 mg subcut PRN PRN HIVES 04/23/21 08/30/25 Unknown History injection, auto-injector Allergies Allergy/AdvReac Type Severity Reaction Status Date / Time amoxicillin Allergy Severe Hives Verified 10/04/25 17:47 aspirin Allergy Intermediate Hives Verified 10/04/25 17:47 [facility] Past Medical History Medical History HTN (hypertension) Chronic GERD Diabetes Allergies History of hyperlipidemia History of diabetes mellitus History of hypertension Surgical History Surgical History Status post club foot correction at Family History Family History Father Diabetes mellitus Hypertension Depression Heart disease Grandparent Diabetes mellitus Hypertension Heart disease Grandparent Hypertension Heart disease Other Family history of arthritis Social History Social History Smoking status: Never smoker Alcohol intake: current Drinks per week: 1 Substance use: never Substance use type: does not use Lack of Transportation: No Lack of Food: Never True Current Housing: I Have Housing Concerned About Future Housing: No Difficulty Paying Gas/Electric Bills: No Difficulty Paying for Meds: No Currently Unemployed: No Education: Decline to Answer Difficulty w/ Childcare or Family Care: No Living arrangements: with family Occupation/Education: occupation Additional occupation/education comments: [employer] Gender identity (if verbalized by the patient): Male Spiritual care concerns: No Agree to blood products: Yes Exam Narrative: APPEARANCE: No acute distress, nontoxic, resting in bed EYES: EOMI HEENT: Normocephalic, atraumatic, OMM RESPIRATORY: No respiratory distress Clear to auscultation bilaterally with no rhonchi wheezing or rales. CARDIOVASCULAR: Regular rate and rhythm without murmurs rubs or gallops. ABDOMINAL: Soft, nontender, nondistended, no rebound or guarding MUSCULOSKELETAl: Moves all extremities. No clubbing, cyanosis or edema. Tenderness palpation to the right dorsal midfoot and to the right 2nd and 3rd toes NEURO: Awake and alert. Following commands, speech normal, no focal deficits SKIN:: Warm, dry. No rashes lesions or abrasions PSYCHIATRIC: Normal affect/mood, Course Vital Signs Vital signs: Vital Signs Temperature 98.7 F 10/04/25 17:48 Pulse Rate 118 H 10/04/25 17:48 Respiratory Rate 20 10/04/25 17:48 Blood Pressure 160/100 H 10/04/25 17:48 Pulse Oximetry 96 10/04/25 17:48 Oxygen Delivery Room Air 10/04/25 17:48 Temperature 98.7 F 10/04/25 17:48 Pulse Rate 68 10/04/25 20:35 Respiratory Rate 16 10/04/25 20:35 Blood Pressure 130/78 10/04/25 20:35 Pulse Oximetry 99 10/04/25 20:35 Oxygen Delivery Room Air 10/04/25 17:48 Procedures Orthopedic Joint Reduction Joint #1: Orthopedic Joint Reduction Date: 10/04/25 Orthopedic Joint Reduction Time: 19:45 Joint Reduction Location: toe Analgesia: nerve block Pre-Procedure Neuro Vascular Exam: normal Local Anesthesia: lidocaine 2% Amount of anesthesic used (mL): 2 Technique used: direct manipulation Post-reduction neuro exam: intact Post-reduction vascular: intact Post Reduction X-Ray Obtained: Yes Post Reduction X-Ray Results: reduced Splint Applied: Yes Patient Tolerated Procedure: well Joint #2: Orthopedic Joint Reduction Date: 10/04/25 Orthopedic Joint Reduction Time: 19:45 Side: right Joint Reduction Location: toe (3rd) Analgesia: nerve block Pre-Procedure Neuro Vascular Exam: normal Local Anesthesia: lidocaine 2% Amount of anesthesic used (mL): 2 Technique used: direct manipulation Post-reduction neuro exam: intact Post-reduction vascular: intact Post Reduction X-Ray Obtained: Yes Post Reduction X-Ray Results: reduced Splint Applied: Yes Patient Tolerated Procedure: well MDM MDM Narrative Medical decision making narrative: 40-year-old male Presenting for right foot injury. On initial evaluation patient was in no acute distress afebrile, hemodynamic stable. Differentials include but are not limited to: Fracture, sprain, strain, contusion Notable exam findings: Tenderness over the dorsum of the right midfoot and to the right 2nd and 3rd toes. X-ray right foot: Mild lateral subluxation of the second and third middle phalanges at the PIP joints of uncertain age. Subluxations were reduced as above, patient tolerated procedure well. Toes were lindy-taped any was placed in ortho shoe. He was advised follow-up with his orthopedic surgeon next week for re-evaluation. Patient was agreeable to this plan. Given strict return precautions. Differential Diagnosis Differential Diagnosis: Fracture, sprain, strain, contusion Imaging Data Radiologist's impression: ITS Impressions Foot X-Ray 10/04/25 18:44 Impression: 1: Mild lateral subluxation of the second and third middle phalanges at the PIP joints of uncertain age. 2: Chronic developmental deformity of the foot, consistent with known clubfoot. Discharge Plan Discharge Clinical Impression: Subluxation of right toe Qualifiers: Encounter type: initial encounter Qualified Code(s): S93.101A - Unspecified subluxation of right toe(s), initial encounter Patient Disposition: Home Condition: Stable Instructions: Antibiotic Form, Finger Dislocation (ED) Additional Instructions: Keep your foot in the ortho shoe. Follow-up with your orthopedic surgeon in the next week for re-evaluation. Return to ED for any new or worsening symptoms. Patient Language: Croatian Prescriptions: No Action hydrocortisone [Preparation H Hydrocortisone] 1 % cream 1 applic topical TID 7 Days Qty: 28.35 0RF epinephrine 0.3 mg/0.3 mL auto-injector 0.3 mg subcut PRN PRN (Reason: HIVES) amlodipine 5 mg tablet See Rx Instructions .ROUTE .COMPLEX Qty: 90 3RF Dose Instruction: TAKE 1 TABLET DAILY Rx Instructions: TAKE 1 TABLET DAILY atorvastatin 10 mg tablet See Rx Instructions .ROUTE .COMPLEX Qty: 90 3RF Dose Instruction: TAKE 1 TABLET DAILY Rx Instructions: TAKE 1 TABLET DAILY losartan-hydrochlorothiazide 100-12.5 mg tablet See Rx Instructions .ROUTE .COMPLEX Qty: 90 3RF Dose Instruction: TAKE 1 TABLET DAILY Rx Instructions: TAKE 1 TABLET DAILY omeprazole 40 mg capsule,delayed release(DR/EC) See Rx Instructions .ROUTE .COMPLEX Qty: 90 3RF Dose Instruction: TAKE 1 CAPSULE DAILY Rx Instructions: TAKE 1 CAPSULE DAILY carbamazepine 200 mg tablet See Rx Instructions .ROUTE .COMPLEX Qty: 90 3RF Dose Instruction: TAKE 1 TABLET DAILY Rx Instructions: TAKE 1 TABLET DAILY Mounjaro 15 mg/0.5 mL pen injector See Rx Instructions .ROUTE .COMPLEX Qty: 4 6RF Dose Instruction: INJECT 15 MG SUBCUTANEOUSLY ONCE A WEEK Rx Instructions: INJECT 15 MG SUBCUTANEOUSLY ONCE A WEEK Follow-up/Referrals: Toni Dawkins MD [Physician, Orthopedics] Liberty Long APRN [Primary Care Provider, Family Practice]
[2025-10-04] MEDS: oxyCODONE HCL (*CRX) 5 MG TAB IR PO (19:05)
--- OUTSIDE RECORDS SUMMARY | 2025-10-04 20:23 | XMS_ITS | Clinical Summary ---
Author Organization [facility] Address [address] [place] [address] Care Team Providers Care Dev Manager Name Role Phone Liberty Long NP Primary Care Provider [phone] Allergies Active Allergy Reactions Criticality Noted Date Comments Amoxicillin Hives 07/20/2024 Penicillins Hives 07/20/2024 Medications carbamazepine 200 MG tablet Take 1 tablet (200 mg total) by mouth daily. 0 Active atorvastatin 10 MG tablet Take 1 tablet (10 mg total) by mouth nightly at bedtime. 0 Active amLODIPine (NORVASC) 5 MG tablet Take 1 tablet (5 mg total) by mouth nightly at bedtime. 4 Active clindamycin (CLEOCIN) 300 MG capsule Take 1 capsule (300 mg total) by mouth 4 (four) times daily. 4 Active HYDROcodone-acetami nophen (NORCO) 5-325 MG tablet Take 2 tablets by mouth every 4 (four) hours as needed for Pain. 4 Active losartan-hydroCHLOR Othiazide (HYZAAR) 100-12.5 MG tablet Take 1 tablet by mouth daily. 4 Active omeprazole (PRILOSEC) 40 MG capsule Take 1 capsule (40 mg total) by mouth nightly at bedtime. 4 Active ondansetron (ZOFRAN-ODT) 4 MG disintegrating tablet Take 1 tablet (4 mg total) by mouth every 8 (eight) hours as needed for Nausea. 4 Active MOUNJARO 15 MG/0.5ML injection Inject 15 mg into the skin once a week. Wednesday 4 Active metFORMIN XR (GLUCOPHAGE-XR) 750 MG 24 hr tablet Take 1 tablet (750 mg total) by mouth nightly at bedtime. 4 Active esomeprazole (NEXIUM) 40 MG capsule Take 1 capsule (40 mg total) by mouth every morning before breakfast. Active multivitamin (THERA) tablet Take 1 tablet by mouth daily. Active Active Problems Problem Noted Date Diagnosed Date Perianal abscess 07/22/2024 Perirectal abscess 07/20/2024 Immunizations Immunization Administration Dates Next Due Influenza (Generic) 06/30/2018 Influenza Adult (Generic) 08/07/2013 Social History Tobacco Use Types Packs/Day Years Used Date Smoking Tobacco: Never Smokeless Tobacco: Never Tobacco Cessation:Counseling Given: No B1300 Health Literacy Answer Date Recor ded How often do you need to hav e someone help you when you read instructions, pamphlets, or other written material from your doctor or pharmacy? Never 07/21/2024 [facility] Utilities Answer Date Recorded In the past [address] [facility] [employer], [employer]*, or water [employer] threatened to shut off services in your home? No 07/21/2024 Humiliation, Afraid, Rape, and Kick questionnair e Answer Date Recorded Within the last year, have y ou been afraid of your partner or ex-partner? No 07/21/2024 Within the last year, have y ou been humiliated or emotionally abused in other ways by your partner or ex-partner? No Within the last year, have y ou been kicked, hit, slapped, or otherwise physically hurt by your partner or ex-partner? No 07/21/2024 Within the last year, have y ou been raped or forced to have any kind of sexual activity by your partner or ex-partner? No 07/21/2024 Social Connection and Isolation Panel Answer Date Recorded In a typical week, how many times do you talk on the phone with family, friends, or neighbors? More than three times a week 07/21/2024 How often do you get togethe r with friends or relatives? Twice a week 07/21/2024 How often do you attend [facility] or [employer] services? 1 to 4 times per year 07/21/2024 Do you belong to any clubs o r organizations such as shinto groups, unions, fraternal or athletic groups, or school groups? Yes 07/21/2024 How often do you attend meet ings of the clubs or organizations you belong to? 1 to 4 times per year 07/21/2024 Are you , , di vorced, , never , or living with a partner? 07/21/2024 AUDIT-C Answer Date Recorded Q1: How often do you have a drink containing alc ohol? 2-4 times a month 07/21/2024 Q2: How many drinks containi ng alcohol do you have on a typical day when you are drinking? 3 or 4 07/21/2024 Q3: How often do you have si x or more drinks on one occasion? Never 07/21/2024 Overall Financial Resource Strain (CARDIA) Answe r Date Recorded How hard is it for you to pa y for the very basics like food, housing, medical care, and heating? Not hard at all 07/21/2024 [facility] - Occupational Stress Questionnaire Answer Date Recorded Do you feel stress - tense, restless, nervous, or anxious, or unable to sleep at night because your mind is troubled all the time - these days? Not at all 07/21/2024 Exercise Vital Sign Answer Date Recorde d On average, how many days pe r week do you engage in moderate to strenuous exercise (like a brisk walk)? 3 days 07/21/2024 On average, how many minutes do you engage in exercise at this level? 30 min 07/21/2024 Hunger Vital Sign Answer Date Recorded Within the past 12 months, y ou worried that your food would run out before you got the money to buy more. Never true 07/21/20 24 Within the past 12 months, t he food you bought just didn't last and you didn't have money to get more. Never true 07/21/2024 PRAPARE - Transportation Answer Date Re corded In the past 12 months, has l ack of transportation kept you from medical appointments or from getting medications? No 07/11 In the past 12 months, has l ack of transportation kept you from meetings, work, or from getting things needed for daily living? No 07/21/2024 Housing Stability Vital Sign Answer Jasen e Recorded In the last 12 months, was t here a time when you were not able to pay the mortgage or rent on time? No 07/21/2024 In the past 12 months, how m any times have you moved where you were living? 1 07/21/2024 At any time in the past 12 m [facility], were you homeless or living in a skilled nursing (including now)? No 07/21/2024 Sex and Gender Information Value Date Recorded Sex Assigned at Not on file Legal Sex Male 8:01 PM CDT Gender Identity Not on file Sexual Orientation Not on file Last Filed Vital Signs Vital Sign Reading Time Taken Comments Blood Pressure 143/94 07/24/2024 8:22 AM CDT Pulse 85 07/24/2024 8:22 AM CDT Temperature 36.3 C (97.3 F) 07/24/2024 8:22 AM CDT Respiratory Rate 18 07/24/2024 8:22 AM CDT Oxygen Saturation 95% 07/24/2024 8:22 AM CDT Inhaled Oxygen Concentration - - Weight 103.1 kg (227 lb 4.7 oz) 07/20/2024 6:53 PM CDT Height 170.2 cm (5' 7) 07/20/2024 6:53 PM CDT Body Mass Index 35.6 07/20/2024 6:53 PM CDT Plan of Treatment Health Maintenance Due Date Last Done Comments Annual Physical 1986 Hepatitis C 2001 Hepatitis B Vaccines (1 of 3 - 19+ 3-dose series) 2002 HPV Vaccines (1 - 3-dose SCDM series) 2010 COVID-19 Vaccine ( season) 2025 Influenza Adult (#1) 2025 12/26/2020, 10/12/2019, 07/20/2019, Additional history exists DTaP, Tdap and Td Vaccines (2 - Td or Tdap) 02/28/2033 02/28/2023 Hepatitis A Vaccines Aged Out No long er eligible based on patient's age to complete this topic Meningococcal B Vaccine Aged Out No l onger eligible based on patient's age to complete this topic Meningococcal Vaccine Aged Out No dorcas sarmad eligible based on patient's age to complete this topic Pneumococcal Vaccine: Pediatrics (0 to 5 Years) and At-Risk Patients (6 to 49 Years) Aged Out No longer eligible based on patient's age to complete this topic RSV Immunizations Under 20 Months Aged Out No longer eligible based on patient's age to complete this topic Goals Goal Patient Goal Type Associated Problems Recent Progress Patient-Stated? Author Health - patient able to perform ADLs independently Lifestyle No Nayla De Leon, RN Insurance [facility] Advance Directives * Full Code (Latest Code Status on File) Date Activated Date Inactivated Comments 07/20/2024 11:40 PM 07/24/2024 1:21 PM Care Teams Dev Manager Relationship Specialty Start Date End Date Liberty Long NP [address] [place] [id number] PCP - General NURSE PRACTITIONER 10/25/19
--- OUTSIDE RECORDS SUMMARY | 2025-10-04 20:23 | XMS_ITS | Clinical Summary ---
Author Organization [address] Address [address] [place] [id number] Care Team Providers Care Dredge Captain Name Role Phone Lbierty Long NP Primary Care Provider [phone] Allergies Active Allergy Reactions Criticality Noted Date Comments Amoxicillin Hives,Rash Medium 12/14/2019 Aspirin Unknown 02/25/2023 Medications omeprazole (PriLOSEC) 40 mg capsule 10/25/2019 Active amLODIPine (NORVASC) 5 mg tablet 01/20/2023 Active carBAMazepine (TEGretol) 200 mg tablet 01/09/2023 Active cetirizine (ZyrTEC) 10 mg tablet daily Active cyclobenzaprine (FLEXERIL) 5 mg tablet 07/18/2019 Active dulaglutide (Trulicity) 3 mg/0.5 mL pen injector as directed Active esomeprazole DR (NexIUM) 40 mg capsule daily Active famotidine (Pepcid) 20 mg tablet 1 tab(s) Active fluticasone propionate (FLONASE) 50 mcg/actuation nasal spray every 12 hours Active hydroCHLOROthia zide (HYDRODIURIL) 25 mg tablet 10/25/2019 Active losartan-hydroC HLOROthiazide (HYZAAR) 100-12.5 mg per tablet 01/08/2023 Active montelukast (SINGULAIR) 10 mg tablet 10/25/2019 Active omalizumab (Xolair) 150 mg injection 150 mg Active Active Problems Problem Noted Date Diagnosed Date Adverse effect of penicillin 02/28/2023 Adverse reaction to drug 02/28/2023 023 Allergic rhinitis 02/28/2023 02/28/2023 Chronic allergic conjunctivitis 02/28/2023 02/28/2023 Elevated blood pressure read ing without diagnosis of hypertension 02/28/2023 02/28/2023 Fever 02/28/2023 02/28/2023 Hypertrophy of nasal turbinates 02/28/2023 02/28/2023 Moderate persistent asthma without complication 02/28/2023 02/28/2023 Rash 02/28/2023 02/28/2023 Uncomplicated severe persistent asthma 02/28/2023 Urticaria 02/28/2023 02/28/2023 Cough 11/15/2021 Assessment & Plan (11/15/2021 3:00 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 Immunizations Immunization Administration Dates Next Due H1N1 Nasal 07/20/2019 Influenza, Quadrivalent, Katie l Culture-based MDCK, Antibiotic Free, Intramuscular 12/26/2020 Influenza, Quadrivalent, Split, Intramuscular Influenza, Trivalent, Cell C ulture-based MDCK, Preservative Free, Antibiotic Free, Intramuscular 10/12/2019 Influenza, Trivalent, IM (MDV) 08/07/2013 Tdap 02/28/2023 Surgical History Surgery Date Site/Laterality Comments CLUB FOOT RELEASE ELBOW SURGERY Medical History Medical History Date Comments Hypertension Hypercholesteremia Diabetes mellitus Kidney stone Depression Family History Medical History Relation Name Comments Diabetes Other Hypertension Other Mental illness Other Relation Name Status Comments Other Social History Tobacco Use Types Packs/Day Years Used Date Smoking Tobacco: Never Smokeless Tobacco: Never Personal Safety Answer Date Recorded Getting School Help Needed Not on file 12/05 Sex and Gender Information Value Date Recorded Sex Assigned at Not on file Legal Sex Male 4:15 AM STRIPPING AND BOOKING MACHINE OPERATOR Gender Identity Male 11/15/2021 2:28 PM STRIPPING AND BOOKING MACHINE OPERATOR Sexual Orientation Straight 11/15/2021 2: 28 PM STRIPPING AND BOOKING MACHINE OPERATOR Last Filed Vital Signs Vital Sign Reading Time Taken Comments Blood Pressure 144/92 02/28/2023 4:01 PM CDT Pulse 97 02/28/2023 3:39 PM CDT Temperature 36.8 C (98.2 F) 02/28/2023 3:39 PM CDT Respiratory Rate 18 02/28/2023 3:39 PM CDT Oxygen Saturation 96% 02/28/2023 3:39 PM CDT Inhaled Oxygen Concentration - - Weight 112.5 kg (248 lb) 02/28/2023 3:39 PM CDT Height 170.2 cm (5' 7) 02/28/2023 3:39 PM CDT Body Mass Index 38.84 02/28/2023 3:39 PM CDT Plan of Treatment Health Maintenance Due Date Last Done Comments Depression Screening 1983 Hepatitis C Screening 1983 Hepatitis B Screening 2001 Regular Well Visit/Exam 18-64 2001 Pneumococcal vaccine <65 (1 of 2 - PCV) 2002 HPV Vaccines (1 - 3-dose SCD M series) 2010 Varicella Vaccines (1 of 2 - 13+ 2-dose series) 08/17/2019 Covid-19 Vaccine (2 - Jansse n risk series) 01/19/2021 12/22/2020 Influenza Vaccine (#1) 2025 , 10/12/2019, 06/30/2018, Additional history exists DTaP/Tdap/Td Vaccine (2 - Td or Tdap) 02/28/2033 02/28/2023 Insurance [employer] [address] [facility] [place] [address] Care Teams Dredge Captain Relationship Specialty Start Date End Date Liberty Long NP PCP - General Nurse Practitioner 10/26/19
--- OUTSIDE RECORDS SUMMARY | 2025-10-04 20:23 | XMS_ITS | Patient Health Record ---
Author Organization [facility] ([address]) Address [address] [place] [address] Care Team Providers Care Material Requirements Planning Manager Name Role Phone Aliza Larson Primary Care Provider [phone] Liberty Stephenson Allergies Allergen (clinical drug ingredient) Drug/Non Drug Allergy documented on EMR Reaction Allergy Type Onset Date Status amoxicillin Amoxicillin rash Drug Allergy Act nancy aspirin Aspirin other reaction Drug Allergy Ac tive Reason For Referral No Information Medications Medication SIG (Take, Route, Frequency, Duration) Notes Start Date End Date Status NEXIUM 40 mg 1 cap(s) orally once a day Active HYDROCHLOROTHIAZIDE 25 mg 1 tab(s) orally once a day Active TEGRETOL 200 mg 1 tab(s) orally Qday Active CETIRIZINE HYDROCHLORIDE 10 mg 1 tab(s) orally daily; Duration: 30 day(s) Active MONTELUKAST 10 mg 1 tab(s) orally once a day Active Losartan Potassium 25 MG 1 tab(s) orally bid Active Xolair 150 MG 150 mg subcutaneously every 6 weeks; Duration: 30 day(s) Active NexIUM 40 MG 1 cap(s) orally once a day Active Trulicity 3 MG/0.5 ML DIRECTED SUBCUTANEOUSLY ONCE A WEEK *Please review and pick correct strength-formul ation from [employer] options. If intended option is not shown, discontinue and re-order from Quick Search* Active TEGretol 200 MG 1 tab(s) orally Qday Active Fluticasone Propionate 50 MCG/ACT 2 spray(s) in each nostril BID; Duration: 30 day(s) Active metFORMIN HCl 500 MG 1 tab(s) orally QID Active Atorvastatin Calcium 10 MG 1 tab(s) orally once a day Active Pepcid 20 MG 1 tab(s) orally Qday Not-Taking METFORMIN 500 mg 1 tab(s) orally QID Active FLUTICASONE NASAL 50 mcg/inh 2 spray(s) in each nostril BID; Duration: 30 day(s) Active PEPCID 20 mg 1 tab(s) orally Qday Not-Taking LOSARTAN 25 mg 1 tab(s) orally bid Active TRULICITY PEN 3 mg/0.5 mL as directed subcutaneously once a week Active ATORVASTATIN 10 mg 1 tab(s) orally once a day Active XOLAIR 150 mg 150 mg subcutaneously every 6 weeks; Duration: 30 day(s) Active EPINEPHRINE 0.3 mg as directed intramuscularly once; Duration: 30 day(s) Active hydroCHLOROthiazide 25 MG 1 tab(s) orally once a day Active Montelukast Sodium 10 MG 1 tab(s) orally once a day Active Cetirizine HCl 10 MG 1 tab(s) orally daily; Duration: 30 day(s) Active OLOPATADINE NASAL 665 MCG/INH 2 SPRAY(S) INTRANASALLY 2 TIMES A DAY; Duration: 90 DAYS *Please review for potential replacement for e-prescription and drug interaction check* Active EPINEPHrine 0.3 MG DIRECTED INTRAMUSCULARLY ONCE; Duration: 30 DAY(S) *Please review and pick correct strength-formul ation from [employer] options. If intended option is not shown, discontinue and re-order from Quick Search* Active Immunizations Vaccine Route Administration Date Status Comme nts H1N1 Influenza Unknown 07/20/2019 Administered Portal I nformation NOC Flucelvax Quadrivalent Unknown 10/31/2020 Refused Flucelvax Unknown 10/12/2019 Administered NOC Flucelevax Quadrivalent Unknown 12/26/2020 Administered Covid 19 (Ravi & Ravi) Unknown 12/22/2020 Administered Social History Tobacco Use: Social History Observation Description Date Details (start date - stop date) Never Smoker NA - NA Smoking Smart Form: Question Answer Notes Are you a: never smoker Problems Problem Type SNOMED Code ICD Code Onset Dates Problem Status W/U Status Risk Notes Problem Chronic allergic conjunctivitis (31002265) Other chronic allergic conjunctivitis (H10.45) Active confirmed Problem Allergic rhinitis (97250941) Other allergic rhinitis (J30.89) Active confirmed Problem Uncomplicated moderate persistent asthma (562878328) Moderate persistent asthma, uncomplicated (J45.40) Active confirmed Problem Uncomplicated severe persistent asthma (779183542) Severe persistent asthma, uncomplicated (J45.50) Active confirmed Problem Elevated blood pressure reading without diagnosis of hypertension (509215037) Elevated blood-pressure reading, without diagnosis of hypertension (R03.0) Active confirmed Problem Fever (159372671) Fever, unspecified (R50.9) Active confirmed Problem Adverse reaction to penicillins (048732070) Adverse effect of penicillins, initial encounter (T36.0X5A) Active confirmed Problem Adverse reaction to drug (16591236) Adverse effect of penicillins, subsequent encounter (T36.0X5D) Active confirmed Problem Adverse effect o f aspirin, initial encounter (T39.015A) Active confirmed Problem Adverse effect o f aspirin, subsequent encounter (T39.015D) Active confirmed Problem Adverse reaction to drug (86273698) Unspecified adverse effect of drug or medicament, initial encounter (T88.7XXA) Active confirmed Problem Eruption of skin (115764039) Rash and other nonspecific skin eruption (R21) Active confirmed Problem Urticaria (724154956) Other urticaria (L50.8) Active confirmed Problem Hypertrophy of nasal turbinates (32535662) Hypertrophy of nasal turbinates (J34.3) Active confirmed Plan Of Treatment No Information Insurance Providers Payer Name Payer Address Payer Phone Subscriber Number Group Number Insured Name Patient Relationship to Insured Coverage Start Date Coverage End Date 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
[2025-10-04 20:35] VITALS: BP 130/78; PULSE 68; RESP 16; O2SAT 99
== END 2025-10-04 20:36 | disposition home or self-care (01) ==
LOC: ANHED 20:20
PROVIDERS: Emergency Provider Student in an Organized Health Care Education/Training Program; PCP Nurse Practitioner Adult Health
DX: S93.101A Unspecified subluxation of right toe(s), initial encounter (principal); X50.0XXA Overexertion from strenuous movement or load, initial encounter
CPT/HCPCS: 28660; 73620; 99285; A9270